=== PATIENT | male | born 1990 | race African-American/Black ===

== ENCOUNTER 2016-04-16 19:02 | Emergency (ER) | payer SELFPAY ==
[~2016-04-16] VITALS: Ht 185.4 cm; Wt 105.0 kg
[~2016-04-16 19:02] MED LIST: BACTDS PO; CEPH-443 PO; IBUP800T25 PO
[2016-04-16 19:04] VITALS: Ht 185.4 cm; Wt 105.0 kg
== END 2016-04-16 20:08 | disposition left against medical advice (07) ==
LOC: FTE 19:02
DX: Z53.21 Procedure and treatment not carried out due to patient leaving prior to being seen by health care provider (principal)

== ENCOUNTER 2016-09-19 23:02 | Emergency (ER) | END 2016-09-20 02:49 | disposition home or self-care (01) | DX: L02.31 Cutaneous abscess of buttock (principal) | CPT/HCPCS: 96372; J1885; Z7502; Z7610 ==

== ENCOUNTER 2017-02-21 12:16 | Emergency (ER) | payer OTHER ==
[~2017-02-21] VITALS: Wt 90.3 kg
[~2017-02-21 12:16] MED LIST changes: +DOCU-144 PO; +HYDR-906 PO; +IBUP-1542 PO; +SULF1TAB31 PO
[2017-02-21] MEDS ORDERED: CEFTRIAXONE 500 MG INJ IM STA (13:10)
[2017-02-21] MEDS ORDERED: AZITHROMYCIN 250 MG TAB PO STA (13:10)
[2017-02-21 13:39] LABS: ADD UMIC NO; UR ASCORBIC ACID 40 mg/dL (NEGATIVE); UR BILIRUBIN (Dip) NEGATIVE (NEGATIVE); UR BLOOD (Dip) NEGATIVE (NEGATIVE); UR CLARITY CLEAR (CLEAR); UR COLOR YELLOW (YELLOW); UR GLUCOSE (Dip) NEGATIVE (NEGATIVE); UR KETONES (Dip) NEGATIVE (NEGATIVE); UR LEUKOCYTE ESTERASE (Dip) NEGATIVE Leu/ul (NEGATIVE); UR NITRITE (Dip) NEGATIVE (NEGATIVE); UR SPECIFIC GRAVITY (Dip) 1.024 (1.003-1.030); UR TOTAL PROTEIN (Dip) NEGATIVE (NEGATIVE); UR UROBILINOGEN (Dip) 2+ mg/dL (NEGATIVE)
--- NOTE | 2017-02-21 15:13 | ERD ---
ER Documentation Chief Complaint Chief Complaint SENT HERE FOR STD RULE OUT. NO SYMPTOMS AT THIS TIME. HPI This is a 26-year-old presents emergency department asking to check all STDs. Patient states that he had unprotected sex with a woman who has told her him to go get STD checked however she did not say if she had any STDs or what STD. Patient denies any fevers, dysuria, penile discharge, penile lesions. ROS All systems reviewed and are negative except as per history of present illness. Medications Home Meds Active Scripts Docusate Sodium* (Colace*) 100 Mg Capsule, 100 MG PO TID, #30 CAP Prov:PEDRO CAMACHO [employer]NER 09/20/16 Hydrocodone/Acetaminophen (Boswell 5-325 Tablet) 1 Each Tablet, 1 TAB PO Q6H Y for SEVERE PAIN LEVEL 7-10, #20 TAB Prov:PEDRO CAMACHO NP 09/20/16 Ibuprofen* (Motrin*) 600 Mg Tab, 600 MG PO Q6H Y for PAIN AND OR ELEVATED TEMP, #30 TAB Prov:PEDRO CAMACHO [employer]NER 09/20/16 Cephalexin* (Keflex*) 500 Mg Capsule, 500 MG PO QID for 10 Days, CAP Prov:PEDRO CAMACHO [employer]NER 09/20/16 Sulfamethoxazole/Trimethoprim* (Bactrim Ds* Tablet) 1 Each Tablet, 1 TAB PO BID , #20 TAB Prov:PEDRO CAMACHO [employer]NER 09/20/16 Ibuprofen* (Motrin*) 800 Mg Tab, 800 MG PO Q6, #30 TAB Prov:DAILY HOPKINSC 12/11/15 Cephalexin* (Keflex*) 500 Mg Capsule, 500 MG PO QID for 7 Days, CAP Prov:PRODAILY EMANUEL-C 12/11/15 Sulfamethoxazole-Trimethoprim* (Bactrim* DS) 800-160 Mg Tab, 1 TAB PO BID for 7 Days, TAB Prov:DAILY HOPKINS-C 12/11/15 Allergies Allergies: Coded Allergies: No Known Allergy (Unverified , 12/11/15) PMhx/Soc History of Surgery: No Anesthesia Reaction: No Hx Neurological Disorder: No Hx Respiratory Disorders: No Hx Cardiac Disorders: No Hx Psychiatric Problems: No Hx Miscellaneous Medical Probl: No Hx Alcohol Use: No Hx Substance Use: No Hx Tobacco Use: No Smoking Status: Never smoker Physical Exam Vitals Vital Signs Date Time Temp Pulse Resp B/P Pulse Ox O2 Delivery O2 Flow Rate FiO2 02/21/17 12:20 97.6 86 20 159/67 98 Physical Exam Const: [] Head: Atraumatic Eyes: Normal Conjunctiva ENT: Normal External Ears, Nose and Mouth. Neck: Full range of motion..~ No meningismus. Resp: Clear to auscultation bilaterally Cardio: Regular rate and rhythm, no murmurs Abd: Soft, non tender, non distended. Normal bowel sounds Skin: No petechiae or rashes Back: No midline or flank tenderness Ext: No cyanosis, or edema Neur: Awake and alert Psych: Normal Mood and Affect Results 24 hrs Laboratory Tests Test 02/21/17 13:15 Urine Color YELLOW Urine Clarity CLEAR Urine pH 7.0 Urine Specific Jackson 1.024 Urine Ketones NEGATIVEmg/dL Urine Nitrite NEGATIVEmg/dL Urine Bilirubin NEGATIVEmg/dL Urine Urobilinogen 2+mg/dL Urine Leukocyte Esterase NEGATIVELeu/ul Urine Hemoglobin NEGATIVEmg/dL Urine Glucose NEGATIVEmg/dL Urine Total Protein NEGATIVEmg/dl Current Medications Medications (Trade) Dose Ordered Sig/Shari Route PRN Reason Start Time Stop Time Status Last Admin Dose Admin Azithromycin (Zithromax) 1,000 mg ONCE STAT PO 02/21/17 13:10 02/21/17 13:12 DC 02/21/17 13:28 Ceftriaxone Sodium (Rocephin) 500 mg ONCE STAT IM 02/21/17 13:10 02/21/17 13:12 DC 02/21/17 13:30 Procedures/MDM This is a 26-year-old male presenting to the emergency department asking for STD check, patient did not have any evidence of any STD on exam. Patient wanted to get treated for gonorrhea chlamydia in the ED, a urine culture was still sent out. Patient was given ceftriaxone and azithromycin. I have discussed with him that he will need to get HIV, hepatitis also checked but needs to follow-up with his primary care physician to do so for better follow- up. He understands and agrees Departure Diagnosis: Primary Impression: Concern about STD in male without diagnosis Condition: Stable Patient Instructions: If You Think You Have an STD Referrals: [facility] Hours: 8:00 am - 5:00 pm MAURICE GRAJEDA PA-C Feb 21, 2017 15:13
== END 2017-02-21 13:43 | disposition home or self-care (01) ==
LOC: FTE 12:16
DX: Z11.3 Encounter for screening for infections with a predominantly sexual mode of transmission (principal)
CPT/HCPCS: 81003; 87591; 96372; J0696; Z7502; Z7610